=== PATIENT | female | born 2000 | race Caucasian/White ===

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

== ENCOUNTER 2022-05-28 10:09 | Emergency (ER) | payer BC ==
[2022-05-28 11:34] LABS: Urine Blood Negative (Negative); Urine Glucose Negative (Negative); Urine Protein Negative (Negative); Urine Specific Gravity >=1.030 (1.005-1.030); Urine pH 5.5 (5.0-7.0)
[2022-05-28 11:45] LABS: Hematocrit 43.6 % (36.0-45.0); Lymphocytes % 42.4 % (15.3-44.8); MCV 82.6 fL (80-100); MPV 7.8 fL (7.6-11.3); RBC Red Blood Cell Count 5.28 M/uL (3.86-4.86)
[2022-05-28 11:49] LABS: Calcium Oxalate Crystals- Ur Few /HPF (None Seen); Urine Bacteria <20 /HPF (<20); Urine RBC <5 /HPF (None Seen)
[2022-05-28 11:56] LABS: Albumin 3.8 g/dL (3.4-5.0); Bilirubin Total 0.3 mg/dL (0.2-1.0)
--- NOTE | 2022-05-28 12:26 | RAD REPORT ---
EXAM DESCRIPTION: CT - Abdomen Pelvis W Contrast - 05/28/2022 12:11 pm CLINICAL HISTORY: Right Lower quadrant abdominal pain COMPARISON: No comparisons TECHNIQUE: Biphasic, helical CT imaging of the abdomen and pelvis was performed following 100 ml non -ionic IV contrast. No oral contrast administered. All CT scans are performed using dose optimization technique as appropriate and may include automated exposure control or mA/KV adjustment according to patient size. FINDINGS: No suspicious findings in the lung bases. The liver, spleen, and pancreas show no suspicious findings. Gallbladder and biliary tree are also wi thout suspicious finding. Symmetric renal function is seen with no hydronephrosis or suspicious renal mass. No pyelonephritis o r acute parenchymal process. No bladder abnormalities. No adrenal abnormalities. No uterine abnormality. No left ovarian abnormality. Right ovary is difficult to clearly distinguish from isodense small bowel. No gastric dilatation or gastric wall thickening. No small bowel abnormality. Constipation pattern is seen with a large amount of stool distending but not dilating the entirety of the colon. Cecum is lo w lying along the anterior right pelvic floor. A separate or discrete appendix is difficult to identi fied. There is no stranding or edema of the right lower quadrant or right-side pelvic fat to suspect acute appendicitis. No free air, free fluid or pneumatosis. No focal area of inflammatory stranding identified. No herni a, mass or bulky lymphadenopathy. No suspicious bony findings. IMPRESSION: The appendix is not clearly defined. No direct or indirect evidence for appendicitis. Constipation pattern with a large stool volume distending but not dilating the colon. No or PROFESSOR OF PHYSICAL EDUCATION abnormality identifiable.
[2022-05-28] MEDS ORDERED: NA CHLORIDE 0.9% 1,000 ML ONE (12:28)
--- NOTE | 2022-05-28 13:04 | EDPHYS ---
Physician Documentation [facility] Name: Cindy Dow Age: 21 yrs Sex: Female : 2000 Arrival Date: 05/28/2022 Time: 10:09 Bed 13 Private MD: Wen Hill K ED Physician Timothy Centeno HPI: 05/28 10:48 This 21 yrs old Female presents to ER via Ambulatory with complaints of Irregular ms3 Pulse, Abdominal Pain. 10:48 This 21 yrs old Female presents to ER via Ambulatory with complaints of High Pulse, ms3 Abdominal Pain. 10:50 The patient presents with abdominal pain right lower quadrant. Onset: The ms3 symptoms/episode began/occurred 2 day(s) ago. The symptoms do not radiate. Associated signs and symptoms: none. The symptoms are described as stabbing. Modifying factors: The symptoms are alleviated by nothing, the symptoms are aggravated by nothing. Severity of pain: At its worst the pain was moderate in the emergency department the pain is a 4 / 10. 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 - Social history:: Smoking status: Patient denies any tobacco usage or history of. ROS: 10:50 Constitutional: Negative for fever, and chills. Neck: Negative for injury, pain, and ms3 swelling, Cardiovascular: Negative for chest pain, and palpitations. Respiratory: Negative for shortness of breath, cough, wheezing, and pleuritic chest pain. 10:50 Skin: Negative for injury, rash, and discoloration. 10:50 Abdomen/GI: Positive for abdominal pain. 10:50 All other systems are negative. Exam: 10:46 ECG was reviewed by the Attending Physician. ms3 10:50 Constitutional: This is a well developed, well nourished patient who is awake, alert, ms3 and in no acute distress. Head/Face: Normocephalic, atraumatic. Neck: Trachea midline, no cervical lymphadenopathy. Supple, full range of motion without nuchal rigidity, or vertebral point tenderness. No Meningismus. Chest/axilla: Normal chest wall appearance and motion. Nontender with no deformity. Cardiovascular: Regular rate and rhythm with a normal S1 and S2. No gallops, murmurs, or rubs. Normal PMI, no JVD. No pulse deficits. Respiratory: Lungs have equal breath sounds bilaterally, clear to auscultation and percussion. No rales, rhonchi or wheezes noted. No increased work of breathing, no retractions or nasal flaring. 10:50 Skin: Warm, dry with normal turgor. Normal color with no rashes, no lesions, and no evidence of cellulitis. Psych: Awake, alert, with orientation to person, place and time. Behavior, mood, and affect are within normal limits. 10:50 Abdomen/GI: Inspection: abdomen appears normal, Bowel sounds: normal, Palpation: moderate abdominal tenderness, in the right lower quadrant. Vital Signs: 10:36 BP 132 / 110; Pulse 138; Resp 16; Temp 99; Pulse Ox 100% ; Weight 49.9 kg; Height 5 ft. tp1 2 in. (157.48 cm); 12:26 BP 129 / 96; Pulse 103; Resp 17; Pulse Ox 100% on R/A; hb 10:36 Body Mass Index 20.12 (49.90 kg, 157.48 cm) tp1 MDM: 10:50 Differential diagnosis: appendicitis, non-specific abd pain, urinary tract infection. ms3 12:00 Patient medically screened. ms3 13:03 Data reviewed: vital signs, nurses notes, lab test result(s), radiologic studies, and ms3 as a result, I will discharge patient. Counseling: I had a detailed discussion with the patient and/or guardian regarding: the historical points, exam findings, and any diagnostic results supporting the discharge/admit diagnosis, lab results, radiology results, the need for outpatient follow up, to return to the emergency department if symptoms worsen or persist or if there are any questions or concerns that arise at home. ED course: Discussed labs, CT , PE findings with patient. Patient to follow up with Dr Hill in 2-3 days. Patient understands/ agrees with plan. All questions answered. Return precautions given to include worsening symptoms, or any other concerns. Patient is improved, in NAD, non-toxic appearing, ambulatory in ED, speaking full sentences. . 05/28 10:48 Order name: CBC with Diff; Complete Time: 12:34 ms3 05/28 10:48 Order name: CMP; Complete Time: 12:34 ms3 05/28 10:48 Order name: Lipase; Complete Time: 12:34 ms3 05/28 10:48 Order name: Urine Microscopic Only; Complete Time: 12:34 ms3 05/28 11:35 Order name: Urine Dipstick-Ancillary; Complete Time: 12:34 EDMS 05/28 11:39 Order name: Urine --Ancillary (enter results) eb 05/28 10:48 Order name: CT Abd/Pelvis - IV Contrast Only; Complete Time: 12:34 ms3 05/28 10:48 Order name: IV Saline Lock; Complete Time: 11:50 ms3 05/28 10:48 Order name: Labs collected and sent; Complete Time: 11:50 ms3 05/28 10:48 Order name: Urine Dipstick-Ancillary (obtain specimen); Complete Time: 11:50 ms3 05/28 10:48 Order name: Urine Test (obtain specimen); Complete Time: 11:50 ms3 EC:46 Rate is 139 beats/min. Rhythm is regular. QRS [place] is Normal. DC interval is normal. ms3 Clinical impression: Sinus tachycardia. Interpreted by me. Reviewed by me. Administered Medications: 12:25 Drug: NS 0.9% 1000 ml Route: IV; Rate: 1 bolus; Site: left antecubital; Disposition Summary: 05/28/22 13:03 Discharge Ordered Location: Home ms3 Condition: Stable ms3 Diagnosis - Abdominal pain, unspecified ms3 - Tachycardia, unspecified ms3 Followup: ms3 - With: Wen Hill MD - When: 2 - 3 days - Reason: Re-evaluation by your physician Discharge Instructions: - Discharge Summary Sheet ms3 - Abdominal Pain, Adult ms3 Forms: - Medication Reconciliation Form ms3 - Thank You Letter ms3 - Antibiotic Education ms3 - Prescription Opioid Use ms3 Signatures: Dispatcher [employer] EDMS Mattie Kellogg RN RN Timothy Centeno DO DO ms3 Jillian Tejeda tp1 Corrections: (The following items were deleted from the chart) 10:37 10:36 Home Meds: None; tp1 tp1
--- NOTE | 2022-05-28 13:04 | ER ---
Nurse's Notes [facility] Name: Cindy Dow Age: 21 yrs Sex: Female : 2000 Arrival Date: 05/28/2022 Time: 10:09 Bed 13 Private MD: Wen Hill K Diagnosis: Abdominal pain, unspecified;Tachycardia, unspecified Presentation: 05/28 10:33 Chief complaint: Patient states: right lower ABD pain 2 days ago, irregular pulse at tp1 DR. Hill's office HR in office 140, repeat 130. Coronavirus screen: Vaccine status: Patient reports receiving the 2nd dose of the covid vaccine. Ebola Screen: Patient denies exposure to infectious person. Patient denies travel to an Ebola-affected area in the 21 days before illness onset. Initial Sepsis Screen: Does the patient meet any 2 criteria? No. Patient's initial sepsis screen is negative. Does the patient have a suspected source of infection? No. Patient's initial sepsis screen is negative. Risk Assessment: Do you want to hurt yourself or someone else? Patient reports no desire to harm self or others. Onset of symptoms was May 26, 2022. 10:33 Method Of Arrival: Ambulatory tp1 10:33 Acuity: TARIK 3 tp1 Triage Assessment: 10:36 General: Appears in no apparent distress. uncomfortable, Behavior is calm, cooperative. tp1 Pain: Complains of pain in right lower quadrant Pain does not radiate. Pain currently is 4 out of 10 on a pain scale. Quality of pain is described as sharp. Cardiovascular: Patient's skin is warm and dry. Cardiovascular: Reports shortness of breath, Denies chest pain. Respiratory: Airway is patent Respiratory effort is even, unlabored. GI: Patient currently denies diarrhea, nausea, vomiting. 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 - Social history:: Smoking status: Patient denies any tobacco usage or history of. Screenin:00 Abuse screen: Denies threats or abuse. Denies injuries from another. Nutritional hb screening: No deficits noted. Tuberculosis screening: No symptoms or risk factors identified. Fall Risk None identified. Assessment: 12:25 General: Appears in no apparent distress. Behavior is calm, cooperative. Pain: Pain hb currently is 3 out of 10 on a pain scale. Neuro: Level of Consciousness is awake, alert, obeys commands, Oriented to person, place, time, situation. Cardiovascular: Patient's skin is warm and dry. Respiratory: Respiratory effort is even, unlabored, Respiratory pattern is regular, symmetrical. GI: Reports lower abdominal pain. : No signs and/or symptoms were reported regarding the genitourinary system. EENT: No signs and/or symptoms were reported regarding the EENT system. Derm: Skin is pink, warm \T\ dry. Musculoskeletal: No signs and/or symptoms reported regarding the musculoskeletal system. Vital Signs: 10:36 BP 132 / 110; Pulse 138; Resp 16; Temp 99; Pulse Ox 100% ; Weight 49.9 kg; Height 5 ft. tp1 2 in. (157.48 cm); 12:26 BP 129 / 96; Pulse 103; Resp 17; Pulse Ox 100% on R/A; hb 10:36 Body Mass Index 20.12 (49.90 kg, 157.48 cm) tp1 ED Course: 10:09 Patient arrived in ED. as 10:10 Wen Hill MD is Private Physician. as 10:16 Timothy Centeno DO is Attending Physician. ms3 10:36 Triage completed. tp1 10:36 Arm band placed on. tp1 11:50 Inserted saline lock: 20 gauge in left antecubital area, using aseptic technique. Blood zm collected. 11:50 Urine --Ancillary (enter results) Sent. zm 11:50 CMP Sent. zm 11:50 Lipase Sent. zm 12:12 CT Abd/Pelvis - IV Contrast Only In Process Unspecified. EDMS 12:20 Mattie Kellogg, CLAIRE is Primary Nurse. hb 13:00 Patient has correct armband on for positive identification. Bed in low position. Call hb light in reach. Client placed on continuous cardiac and pulse oximetry monitoring. NIBP monitoring applied. 13:00 Patient maintains SpO2 saturation greater than 95% on room air. hb 13:02 Wen Hill MD is Referral Physician. ms3 13:24 No provider procedures requiring assistance completed. IV discontinued, intact, hb bleeding controlled, No redness/swelling at site. Administered Medications: 12:25 Drug: NS 0.9% 1000 ml Route: IV; Rate: 1 bolus; Site: left antecubital; hb Medication: 13:24 VIS not applicable for this client. hb Outcome: 13:03 Discharge ordered by MD. ms3 13:24 Discharged to home ambulatory, with family. hb 13:24 Condition: stable 13:24 Discharge instructions given to patient, Instructed on discharge instructions, follow up and referral plans. medication usage, Demonstrated understanding of instructions, follow-up care, medications. 13:24 Patient left the ED. hb Signatures: Dispatcher [employer] EDMS Jes Alarcon Heather, CLAIRE RN Timothy Centeno DO DO ms3 Clare Tejeday tp1 Elisabet Alarcon Corrections: (The following items were deleted from the chart) 10:37 10:36 Home Meds: None; tp1 tp1
[2022-05-28 13:33] VITALS: TEMP 99; O2SAT 100
[2022-05-28 13:35] VITALS: BP 129/96
--- NOTE | 2022-05-29 08:17 | EKG ---
Test Date: 2022-05-28 Test Time: 10:46:36 Hvac Engineer: TP MEASUREMENT RESULTS: Intervals: Rate: 139 CT: 148 QRSD: 72 QT: 278 QTc: 423 [place]: P: 75 CT: 148 QRS: 80 T: 59 INTERPRETIVE STATEMENTS: Sinus tachycardia Right atrial enlargement Cannot rule out Anterior infarct, age undetermined Abnormal ECG No previous ECG available for comparison Electronically Signed On 05-29-22 08:12:51 CDT by Jaya Boykin
== END 2022-05-28 13:24 | disposition home or self-care (01) ==
LOC: ER 10:09
DX: R10.31 Right lower quadrant pain (principal); R00.0 Tachycardia, unspecified
CPT/HCPCS: 93005 ×2; 85025; 36415; 81025; 83690; 80053; 74177; 99284; Q9967; J7030; 81003; 81015